=== PATIENT | female | born 1985 | race Hispanic/Latino ===

== ENCOUNTER → 2019-03-13 | Outpatient (CLI) | payer BC, OTHER ==
--- NOTE | 2019-03-13 12:52 | US ---
Thyroid sonogram CLINICAL HISTORY: Thyromegaly FINDINGS: Right thyroid lobe measures 1.7 x 1.6 x 4.5 cm. No focal thyroid lesion. Homogeneous texture with normal echogenicity. No anterior cervical adenopathy is depicted. Isthmus measures 2.8 mm in thickness which is mildly prominent. The left thyroid lobe measures 1.7 x 1.4 x 4.0 cm with homogeneous texture and normal echogenicity. No focal lesion. No anterior left cervical adenopathy. IMPRESSION: Normal thyroid gland. Electronically signed by: Polo James MD 03/13/2019 12:50 PM CDT
== END ==
LOC: US 10:53
PROVIDERS: ATTEND Family Medicine
DX: E04.8 Other specified nontoxic goiter (principal)